=== PATIENT | female | born 1990 | race American Indian/Alaskan Native ===

== ENCOUNTER 2017-03-08 17:42 | Emergency (ER) | payer MEDICAID, OTHER ==
[2017-03-08 17:42] VITALS: BMI 18.8
[2017-03-08 17:48] VITALS: BP 124/83; PULSE 87; RESP 16; TEMP 97.9; O2SAT 100
--- NOTE | 2017-03-08 17:51 | ED PDOC ---
HPI: CCC, URI, Sore Throat Time Seen by Provider: 03/08/17 17:51 Chief Complaint (Nursing): ENT Problem Chief Complaint (Provider): right ear pain History Per: Patient History/Exam Limitations: no limitations Onset/Duration Of Symptoms: Days (4x) Current Symptoms Are (Timing): Still Present Location Of Pain: Ear(s) (right ear) Associated Symptoms: denies: Fever, Chills, Sore Throat, Other (dizziness) Ear Symptoms: Right: Ear Pain Severity: Moderate Additional Complaint(s): 27 year old female patient with no pertinent medical history presents to the ED with complaints of right ear pain that started 4x days ago. She denies taking any medication for the pain. She denies having any associated including fever, chills, dizziness, headache or hearing loss. She rates current pain as 7/10. Patient has not noticed any bleeding or drainage from right ear. Past Medical History Reviewed: Historical Data, Nursing Documentation, Vital Signs Vital Signs: Last Vital Signs Temp 97.9 F 03/08/17 17:47 Pulse 87 03/08/17 17:47 Resp 16 03/08/17 17:47 BP 124/83 03/08/17 17:47 Pulse Ox 100 03/08/17 18:04 - Medical History PMH: Asthma - Surgical History Surgical History: (x 1) - Family History Family History: States: No Known Family Hx - Living Arrangements Living Arrangements: With Family - Social History Current smoker - smoking cessation education provided: No Alcohol: None Drugs: Denies - Home Medications Home Medications: Ambulatory Orders Medication Instructions Recorded Acetaminophen/Oxycodone Hydr 1 tab PO Q6H PRN #15 tab 09/14/14 [Percocet 325 mg-5 mg] Ibuprofen [Motrin] 600 mg PO Q6H PRN #15 tab 05/23/15 Neomycin/Polymyxin/Hydrocort 4 drop TOP BID #1 bottle 03/08/17 [Cortisporin Otic Soln] - Allergies Allergies/Adverse Reactions: Allergies Allergy/AdvReac Type Severity Reaction Status Date / Time peanut Allergy URTICARIA Verified 03/08/17 17:46 Review of Systems ROS Statement: Except As Marked, All Systems Reviewed And Found Negative Constitutional: Negative for: Fever, Chills ENT: Positive for: Ear Pain (right ear). Negative for: Ear Discharge, Throat Pain, Throat Swelling Respiratory: Negative for: Cough Gastrointestinal: Negative for: Nausea Neurological: Negative for: Headache, Dizziness Physical Exam - Reviewed Nursing Documentation Reviewed: Yes Vital Signs Reviewed: Yes - Physical Exam Appears: Positive for: Well, Non-toxic, No Acute Distress Head Exam: Positive for: ATRAUMATIC, NORMOCEPHALIC Skin: Positive for: Normal Color, Warm, DRY ENT: Positive for: Pharynx Is (clear), TM Is/Are (intact), Other (left ear is normal. Right ear: mild canal swelling and erythema. No exudate). Negative for : Pharyngeal Erythema, Tonsillar Exudate Cardiovascular/Chest: Positive for: Regular Rate, Rhythm, Chest Non Tender Respiratory: Positive for: Normal Breath Sounds. Negative for: Respiratory Distress Neurologic/Psych: Positive for: Alert, Oriented (3x) - Laboratory Results Urine POC: Negative - ECG O2 Sat by Pulse Oximetry: 100 (RA) Pulse Ox Interpretation: Normal Medical Decision Making Medical Decision Makin:51 Initial impression: 27 year old female with right otitis externa. Plan: * urine * discharge patient with Rx for cortisporin ear drops and instructions to take advil for pain relief. ENT referral provided. Scribe Attestation: Documented by Rachana Hand, acting as a scribe for Lizbeth Angulo PA-C. Provider Scribe Attestation: All medical record entries made by the Scribe were at my direction and personally dictated by me. I have reviewed the chart and agree that the record accurately reflects my personal performance of the history, physical exam, medical decision making, and the department course for this patient. I have also personally directed, reviewed, and agree with the discharge instructions and disposition. Disposition - Clinical Impression Clinical Impression: Otitis externa - Patient ED Disposition Is Patient to be Admitted: No Counseled Patient/Family Regarding: Diagnosis, Need For Followup, Rx Given - Disposition Referrals: Jorge Luis Clement MD [Staff Provider] - Disposition: Routine/Home Disposition Time: 18:06 Condition: STABLE Additional Instructions: Apply drops as directed. Take 3 over the counter advil every 6 hrs for pain. Take wth food and with pepcid to prevent stomach upset. Pepcid is also available over the counter. Follow up in 2-3 days with primary care doctor or ear, nose and throat specialist. Prescriptions: Neomycin/Polymyxin/Hydrocort [Cortisporin Otic Soln] 4 drop TOP BID #1 bottle Instructions: Otitis Externa (ED)
== END 2017-03-08 18:11 | disposition home or self-care (01) ==
LOC: H.ER 17:42
DX: H60.91 Unspecified otitis externa, right ear (principal)

== ENCOUNTER 2017-09-16 09:25 | Emergency (ER) | payer OTHER ==
[2017-09-16 09:36] VITALS: BP 133/84; PULSE 83; RESP 20; TEMP 98.6; O2SAT 100; BMI 23.1
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
== END 2017-09-16 11:05 | disposition home or self-care (01) ==
LOC: H.ER 09:25
DX: M79.1 Myalgia (principal); J45.909 Unspecified asthma, uncomplicated; V49.40XA Driver injured in collision with unspecified motor vehicles in traffic accident, initial encounter

== ENCOUNTER 2018-05-31 13:36 | Emergency (ER) | payer MEDICAID, OTHER ==
[2018-05-31 13:41] VITALS: BP 136/83; PULSE 74; RESP 16; TEMP 98.2; O2SAT 100; BMI 25.5
--- NOTE | 2018-05-31 14:00 | ED PDOC ---
HPI: Female Pain Time Seen by Provider: 05/31/18 13:45 Chief Complaint (Nursing): Female Genitourinary Chief Complaint (Provider): Dysuria History Per: Patient History/Exam Limitations: no limitations Onset/Duration Of Symptoms: Days (x2) Current Symptoms Are (Timing): Still Present Associated Symptoms: Urinary Symptoms (dysuria). denies: Fever, Nausea, Vomiting, Chest Pain Alleviating Factors: None Additional Complaint(s): 28 year old female with a past medical history of kidney stones presents to the emergency department complaining of dysuria x2 days. Denies back pain, fevers, chills, vomiting, vaginal discharge. Of note: Patient states that she had similar symptoms at age 16 when she was diagnosed with kidney stones. PMD: FAMILY PROVIDER,NO Abnormal Vaginal Bleeding: No Past Medical History Reviewed: Historical Data, Nursing Documentation, Vital Signs Vital Signs: Last Vital Signs Temp 98.2 F 05/31/18 13:39 Pulse 74 05/31/18 13:39 Resp 16 05/31/18 13:39 BP 136/83 05/31/18 13:39 Pulse Ox 100 05/31/18 13:39 - Medical History PMH: Asthma, Kidney Stones - Surgical History Surgical History: (x 1) - Family History Family History: States: Unknown Family Hx - Immunization History Hx Tetanus Toxoid Vaccination: (UTD) - Home Medications Home Medications: Ambulatory Orders Medication Instructions Recorded Acetaminophen/Oxycodone Hydr 1 tab PO Q6H PRN #15 tab 09/14/14 [Percocet 325 mg-5 mg] Ibuprofen [Motrin] 600 mg PO Q6H PRN #15 tab 05/23/15 Neomycin/Polymyxin/Hydrocort 4 drop TOP BID #1 bottle 03/08/17 [Cortisporin Otic Soln] Naproxen [Naprosyn] 500 mg PO Q12H #20 tab 09/16/17 Cephalexin [Keflex] 500 mg PO TID #15 capsule 05/31/18 Phenazopyridine HCl [Pyridium] 200 mg PO Q12 PRN #6 tablet 05/31/18 - Allergies Allergies/Adverse Reactions: Allergies Allergy/AdvReac Type Severity Reaction Status Date / Time peanut Allergy URTICARIA Verified 09/16/17 09:56 Review of Systems Constitutional: Negative for: Fever, Chills Gastrointestinal: Negative for: Nausea, Vomiting Genitourinary Female: Positive for: Dysuria. Negative for: Frequency, Vaginal Discharge Physical Exam - Reviewed Nursing Documentation Reviewed: Yes Vital Signs Reviewed: Yes - Physical Exam Appears: Positive for: Non-toxic, No Acute Distress Head Exam: Positive for: NORMAL INSPECTION Skin: Positive for: Normal Color, Warm, Dry. Negative for: Rash Eye Exam: Positive for: Normal appearance, EOMI, PERRL Neck: Positive for: Normal, Painless ROM, Supple Cardiovascular/Chest: Positive for: Regular Rate, Rhythm, Chest Non Tender. Negative for: Murmur, Tachycardia Respiratory: Positive for: Normal Breath Sounds. Negative for: Rales, Rhonchi, Wheezing, Respiratory Distress Gastrointestinal/Abdominal: Positive for: Bowel Sounds, Soft, Tenderness (Mild suprapubic tenderness). Negative for: Mass, Guarding, Rebound Back: Positive for: Normal Inspection. Negative for: L CVA Tenderness, R CVA Tenderness, Muscle Spasm Neurologic/Psych: Positive for: Alert, Oriented, Gait - Laboratory Results Urine POC: Negative Urine dip results: Positive for: Leukocyte Esterase, Blood. Negative for: Nitrate, Ketones, Glucose, Bilirubin, Protein - ECG O2 Sat by Pulse Oximetry: 100 (RA) Pulse Ox Interpretation: Normal Medical Decision Making Medical Decision Makin Initial Impression 28 year old female presenting with dysuria Initial Plan: * Urine culture * Reevaluation Documented by Amanda Coe acting as a scribe for Michelle Vogt PA-C. All medical record entries made by the Scribe were at my direction and personally dictated by me. I have reviewed the chart and agree that the record accurately reflects my personal performance of the history, physical exam, medical decision making, and the department course for this patient. I have also personally directed, reviewed, and agree with the discharge instructions and disposition. Disposition - Clinical Impression Clinical Impression: Urinary tract infection - Patient ED Disposition Is Patient to be Admitted: No - Disposition Referrals: [facility] [Outside] Disposition: Routine/Home Disposition Time: 14:07 Condition: FAIR Prescriptions: Cephalexin [Keflex] 500 mg PO TID #15 capsule Phenazopyridine HCl [Pyridium] 200 mg PO Q12 PRN #6 tablet PRN Reason: Urinary Discomt Instructions: Urinary Tract Infections in Adults Forms: [employer] [employer] (Y[place]i) - POA Present On Arrival: None
== END 2018-05-31 14:56 | disposition home or self-care (01) ==
LOC: H.ER 13:36
DX: N39.0 Urinary tract infection, site not specified (principal)

== ENCOUNTER 2018-10-02 21:40 | Emergency (ER) | payer MEDICAID ==
[2018-10-02 21:40] VITALS: BMI 25.5
[2018-10-02 22:43] VITALS: BP 133/93; PULSE 84; RESP 18; TEMP 98.2; O2SAT 100
--- NOTE | 2018-10-03 00:02 | ED PDOC ---
Lower Extremity Pain/Injury Time Seen by Provider: 10/02/18 23:12 Chief Complaint (Nursing): Lower Extremity Problem/Injury Chief Complaint (Provider): Lower Extremity Problem/Injury History Per: Patient History/Exam Limitations: no limitations Onset/Duration Of Symptoms: Sudden Onset Additional Complaint(s): 28 years old female otherwise healthy presents to ER for evaluation of a sudden onset right ankle pain when she twisted her ankle running down the stairs prior to arrival. Patient reports swelling developed on outside of ankle and reports worsening of pain with walking or when the area is touched. She denies fall. PMD: non provided Past Medical History Reviewed: Historical Data, Nursing Documentation, Vital Signs Vital Signs: Last Vital Signs Temp 98.2 F 10/02/18 22:39 Pulse 84 10/02/18 22:39 Resp 18 10/02/18 22:39 BP 133/93 H 10/02/18 22:39 Pulse Ox 100 10/02/18 22:39 - Medical History PMH: Asthma, Kidney Stones - Surgical History Surgical History: (x 1) - Family History Family History: States: Unknown Family Hx - Immunization History Hx Tetanus Toxoid Vaccination: (UTD) - Home Medications Home Medications: Ambulatory Orders Medication Instructions Recorded Acetaminophen/Oxycodone Hydr 1 tab PO Q6H PRN #15 tab 09/14/14 [Percocet 325 mg-5 mg] Ibuprofen [Motrin] 600 mg PO Q6H PRN #15 tab 05/23/15 Neomycin/Polymyxin/Hydrocort 4 drop TOP BID #1 bottle 03/08/17 [Cortisporin Otic Soln] Naproxen [Naprosyn] 500 mg PO Q12H #20 tab 09/16/17 Cephalexin [Keflex] 500 mg PO TID #15 capsule 05/31/18 Phenazopyridine HCl [Pyridium] 200 mg PO Q12 PRN #6 tablet 05/31/18 Naproxen [Naprosyn] 500 mg PO BID #30 tablet 10/03/18 - Allergies Allergies/Adverse Reactions: Allergies Allergy/AdvReac Type Severity Reaction Status Date / Time peanut Allergy URTICARIA Verified 10/02/18 22:39 Review of Systems ROS Statement: Except As Marked, All Systems Reviewed And Found Negative Musculoskeletal: Positive for: Foot Pain (Right ankle pain and swelling) Physical Exam - Reviewed Nursing Documentation Reviewed: Yes Vital Signs Reviewed: Yes - Physical Exam Appears: Positive for: Non-toxic, No Acute Distress Head Exam: Positive for: ATRAUMATIC, NORMOCEPHALIC Skin: Positive for: Normal Color, Warm, Dry Extremity: Positive for: Tenderness (to right lateral malleolus.), Capillary Refill (less than 2 seconds), Swelling (to right lateral malleolus). Negative for: Deformity (of right ankle), Other (Tenderness at base of 5th metatarsal or at medial malleolus) Neurologic/Psych: Positive for: Alert, Oriented (x3) - ECG O2 Sat by Pulse Oximetry: 100 (RA) Pulse Ox Interpretation: Normal Medical Decision Making Medical Decision Making: Time: 2325 Initial Impression: Ankle injury. Differential includes but not limited to sprain vs. fracture. Initial Plan: --Motrin 600 mg PO --Right ankle x-ray [address] Wheeler, pending ankle x-ray. ----- Scribe Attestation: Documented by Krista Hugo, acting as a scribe for Lizbeth Birmingham MD. Provider Scribe Attestation: All medical record entries made by the Scribe were at my direction and personally dictated by me. I have reviewed the chart and agree that the record accurately reflects my personal performance of the history, physical exam, medical decision making, and the department course for this patient. I have also personally directed, reviewed, and agree with the discharge instructions and disposition. Disposition - Clinical Impression Clinical Impression: Ankle sprain - Disposition Disposition: Transfer of Care Disposition Time: 00:00 Condition: STABLE Prescriptions: Naproxen [Naprosyn] 500 mg PO BID #30 tablet Forms: [id number] (Citizen [place]), [facility] ED School/Work Excuse
--- NOTE | 2018-10-03 00:43 | ED PDOC ---
- ECG O2 Sat by Pulse Oximetry: 100 (RA) Pulse Ox Interpretation: Normal Medical Decision Making Medical Decision Makin Received endorsement from Dr. Birmingham, pending ankle x-ray. 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 Provider Scribe Attestation: All medical record entries made by the Scribe were at my direction and personally dictated by me. I have reviewed the chart and agree that the record accurately reflects my personal performance of the history, physical exam, medical decision making, and the department course for this patient. I have also personally directed, reviewed, and agree with the discharge instructions and disposition. Disposition - Clinical Impression Clinical Impression: Ankle sprain - POA Present On Arrival: None - Disposition Referrals: [facility] [Outside] Disposition: Routine/Home Disposition Time: 01:00 Condition: GOOD Prescriptions: Naproxen [Naprosyn] 500 mg PO BID #30 tablet Instructions: Ankle Sprain (DC), How to Use Crutches Forms: [employer] (Kisw[place]ili), [facility] ED School/Work Excuse
--- NOTE | 2018-10-03 07:54 | RAD ---
Date of service: 10/03/2018 PROCEDURE: Right Ankle Radiographs. HISTORY: RIGHT ANKLE INJURY COMPARISON: None available. FINDINGS: BONES: Normal. No fracture. JOINTS: Normal. No osteoarthritis. Ankle mortise maintained. Talar dome intact SOFT TISSUES: Normal. OTHER FINDINGS: None. IMPRESSION: Normal right ankle radiographs.
== END 2018-10-03 01:20 | disposition home or self-care (01) ==
LOC: H.ER 21:40
DX: S93.401A Sprain of unspecified ligament of right ankle, initial encounter (principal); X50.9XXA Other and unspecified overexertion or strenuous movements or postures, initial encounter; Y92.89 Other specified places as the place of occurrence of the external cause

== ENCOUNTER 2018-10-25 15:07 | Emergency (ER) | payer MEDICAID ==
[2018-10-25 15:08] VITALS: BMI 25.5
[2018-10-25 15:32] VITALS: BP 125/81; PULSE 89; RESP 16; TEMP 98.5; O2SAT 99
[2018-10-25] MEDS ORDERED: Ciprofloxacin 0.3% OPTH SOLN OS STA (15:49)
--- NOTE | 2018-10-25 15:54 | ED PDOC ---
HPI: Eye Injury/Pain Time Seen by Provider: 10/25/18 15:34 Chief Complaint (Nursing): Eye Problem Chief Complaint (Provider): Left Eye Problem History Per: Patient History/Exam Limitations: no limitations Onset/Duration Of Symptoms: Days (x1) Current Symptoms Are (Timing): Still Present Additional Complaint(s): 28 year old female presents to the ED for evaluation of left eye irritation, swelling, and itchiness since last night. Patient states yesterday it was just itchy, but upon waking up this morning, the eye was red and crusted, so she rinsed it with water and went to work. She reports being sent home from work due to her symptoms and was told to get medical clearance to return. Positive sick contacts with pink eye. Otherwise denies headache, dizziness, visual changes, FB sensation. No other complaints. LNMP: 10/02/2018 PMD: Juan Day Past Medical History Reviewed: Historical Data, Nursing Documentation, Vital Signs Vital Signs: Last Vital Signs Temp 98.5 F 10/25/18 15:32 Pulse 89 10/25/18 15:32 Resp 16 10/25/18 15:32 BP 125/81 10/25/18 15:32 Pulse Ox 99 10/25/18 15:32 - Medical History PMH: Asthma, Kidney Stones - Surgical History Surgical History: (x 1) - Family History Family History: States: Unknown Family Hx - Social History Current smoker - smoking cessation education provided: No Alcohol: None Drugs: Denies - Immunization History Hx Tetanus Toxoid Vaccination: (UTD) - Home Medications Home Medications: Ambulatory Orders Medication Instructions Recorded Acetaminophen/Oxycodone Hydr 1 tab PO Q6H PRN #15 tab 09/14/14 [Percocet 325 mg-5 mg] Ibuprofen [Motrin] 600 mg PO Q6H PRN #15 tab 05/23/15 Neomycin/Polymyxin/Hydrocort 4 drop TOP BID #1 bottle 03/08/17 [Cortisporin Otic Soln] Naproxen [Naprosyn] 500 mg PO Q12H #20 tab 09/16/17 Cephalexin [Keflex] 500 mg PO TID #15 capsule 05/31/18 Phenazopyridine HCl [Pyridium] 200 mg PO Q12 PRN #6 tablet 05/31/18 Naproxen [Naprosyn] 500 mg PO BID #30 tablet 10/03/18 RX: Ciprofloxacin 0.3% [Ciloxan 1 drop OS Q4 #1 bottle 10/25/18 0.3% Ophth SOLN] - Allergies Allergies/Adverse Reactions: Allergies Allergy/AdvReac Type Severity Reaction Status Date / Time peanut Allergy URTICARIA Verified 10/02/18 22:39 Review of Systems ROS Statement: Except As Marked, All Systems Reviewed And Found Negative Eyes: Positive for: Redness (left), Other (irritation, swelling, and crusting to left eye). Negative for: Vision Change Physical Exam - Reviewed Nursing Documentation Reviewed: Yes Vital Signs Reviewed: Yes - Physical Exam Comments: GENERAL APPEARANCE: Patient is awake, alert, oriented x 3, in no acute distress. HEENT: (-) facial swelling and erythema, (-) facial blisters (-) periorbital tenderness, erythema, or swelling. VISUAL ACUITIES: Left eye: 20/ 20; Right eye: 20/ 30; Both eyes: 20/ 13. LIDS & LASHES: Normal. PUPILS: Pupils equal round and reactive. EOM's: Intact and painless. LID EVERSION: (-) foreign body. CONJUNCTIVAE: faint conjunctival erythema to left eye (+) scant amount of mucus to left medial canthus CORNEA: no embedded foreign body noted ANTERIOR CHAMBER: (-) foreign body, (-) hyphema. HEART: RRR RESPIRATORY: lungs clear to auscultation bilaterally. NECK: Supple, FROM - ECG O2 Sat by Pulse Oximetry: 99 (RA) Pulse Ox Interpretation: Normal Medical Decision Making Medical Decision Making: Initial Impression: conjunctivitis Time: 1530 Initial Plan: --Visual acuity --Ciprofloxacin 0.3% 1 drop OS 1630 On re-evaluation, patient reports improvement of symptoms. On exam, patient remains AAOx3, in no acute distress. Vitals stable. Lab/Diagnostic results d/w the patient in great detail. Diagnosis of bacterial conjunctivitis d/w the patient. Based on history, exam and diagnostic results, plan will be for outpatient follow up with ophtho. Patient instructed to follow-up with pmd / referral provided / the clinic in 1- 2 days without fail. Advised to take medication as prescribed. Return to the emergency room at any time for any new or worsening symptoms. Patient states she fully agrees with and understands discharge instructions. States that she agrees with the plan and disposition. Verbalized and repeated discharge instructions and plan. I have given the patient opportunity to ask any additional questions. Scribe Attestation: Documented by Regina Wilder, acting as a scribe for Rachana Samaniego PA-C. Provider Scribe Attestation: All medical record entries made by the Scribe were at my direction and personally dictated by me. I have reviewed the chart and agree that the record accurately reflects my personal performance of the history, physical exam, medical decision making, and the department course for this patient. I have also personally directed, reviewed, and agree with the discharge instructions and disposition. Disposition - Clinical Impression Clinical Impression: Bacterial conjunctivitis of left eye - Patient ED Disposition Is Patient to be Admitted: No Counseled Patient/Family Regarding: Studies Performed, Diagnosis, Need For Followup, Rx Given - Disposition Referrals: Juan Day MD [Primary Care Provider] - Edwardo Frey MD [Staff Provider] - Disposition: Routine/Home Disposition Time: 16:30 Condition: STABLE Additional Instructions: The emergency medical care you received today was directed at your acute symptoms. If you were prescribed any medication, please fill it and take as directed. It may take several days for your symptoms to resolve. Return to the Emergency Department if your symptoms worsen, do not improve, or if you have any other problems. Please contact your doctor in 2 days for re-evaluation and follow up / or call one of the physicians/clinics you have been referred to that are listed on the Patient Visit Information form that is included in your discharge packet. Bring any paperwork you were given at discharge with you along with any medications you are taking to your follow up visit. Our treatment cannot replace ongoing medical care by a primary care provider (PCP) outside of the emergency department. Prescriptions: RX: Ciprofloxacin 0.3% [Ciloxan 0.3% Ophth SOLN] 1 drop OS Q4 #1 bottle Instructions: Conjunctivitis ([place]keye) (DC), How to Use Eye Drops Forms: [facility] (Yoruba) Print Language: CITIZEN OF [place] - POA Present On Arrival: None
== END 2018-10-25 16:44 | disposition home or self-care (01) ==
LOC: SUPCPDRO 15:07 → H.ER 15:07
DX: H10.89 Other conjunctivitis (principal)